=== PATIENT | female | born 1995 | race Caucasian/White ===

== ENCOUNTER 2017-09-28 11:36 | Emergency (ER) | payer OTHER ==
[2017-09-28 12:45] VITALS: BP 108/72
--- NOTE | 2017-09-28 13:00 | UC ---
Throat Pain/Nasal Chin HPI - HPI Summary HPI Summary: SORE THROAT X 1 DAY + FEVER, CHILLS, BODY ACHES NO COUGH - History of Current Complaint Chief Complaint: UCRespiratory Stated Complaint: MCKEON/ACHES/ST/CONGESTION Time Seen by Provider: 09/28/17 12:40 Hx Obtained From: Patient Hx Last Menstrual Period: unknown ?: No Onset/Duration: Gradual Onset, Lasting Days - 1, Still Present Severity: Moderate Pain Intensity: 5 Cough: Nonproductive Associated Signs & Symptoms: Positive: Nasal Discharge, Fever. Negative: Sinus Discomfort, Rash - Allergies/Home Medications Allergies/Adverse Reactions: Allergies Allergy/AdvReac Type Severity Reaction Status Date / Time amoxicillin Allergy Unknown Verified 09/28/17 12:34 Reaction Details Penicillins Allergy Unknown Verified 09/28/17 12:34 Reaction Details cefzil Allergy Unknown Uncoded 09/28/17 12:34 Reaction Details Home Medications: Home Medications O C 1 tab PO QPM 09/28/17 [History Confirmed 09/28/17] Phenylephrine/Dm/Acetaminop/GG [Vicks Dayquil Severe Cold] 2 tab PO ONCE PRN [History Confirmed 09/28/17] PMH/Surg Hx/FS Hx/Imm Hx Previously Healthy: Yes - Surgical History Surgical History: None - Family History Known Family History: Negative: Diabetes - Social History Alcohol Use: Occasionally Substance Use Type: None Smoking Status (MU): Never Smoked Tobacco Review of Systems Constitutional: Fever, Chills, Fatigue Skin: Negative Eyes: Negative ENT: Sore Throat, Nasal Discharge Respiratory: Negative Cardiovascular: Negative Gastrointestinal: Negative Is Patient Immunocompromised?: No All Other Systems Reviewed And Are Negative: Yes Physical Exam Triage Information Reviewed: Yes Appearance: Well-Appearing, No Pain Distress, Well-Nourished Vital Signs: Initial Vital Signs Temp 100.2 F 09/28/17 12:37 Pulse 109 09/28/17 12:37 Resp 20 09/28/17 12:37 BP 108/72 09/28/17 12:37 Pulse Ox 100 09/28/17 12:37 Vital Signs Reviewed: Yes Eye Exam: Normal Eyes: Positive: Conjunctiva Clear ENT: Positive: Normal ENT inspection, Hearing grossly normal, Pharyngeal erythema, Nasal congestion, TMs normal. Negative: Nasal drainage Neck: Positive: Supple, Nontender, No Lymphadenopathy Respiratory: Positive: Chest non-tender, Lungs clear, Normal breath sounds, No respiratory distress Cardiovascular: Positive: Tachycardia Abdominal Exam: Normal Skin Exam: Normal Throat Pain/Nasal Course/Dx - Differential Dx/Diagnosis Provider Diagnoses: URI Discharge - Discharge Plan Condition: Stable Disposition: HOME Patient Education Materials: Upper Respiratory Infection (DC) Referrals: No Primary Care Phys,NOPCP [Primary Care Provider] - If Needed
== END 2017-09-28 13:27 | disposition home or self-care (01) ==
LOC: UCCORT 11:36
DX: J06.9 Acute upper respiratory infection, unspecified (principal)
CPT/HCPCS: 87502; 87651; 99201; G0463